=== PATIENT | male | born 2000 | race Caucasian/White ===

== ENCOUNTER 2021-01-23 18:49 | Emergency (ER) | payer MEDICAID ==
[2021-01-23] MEDS ORDERED: XYLOCAINE 1% HCL 20 ML MDV IJ ONE (19:21)
--- NOTE | 2021-01-23 19:35 | ERPHSYRPT ---
- History of Present Illness Time Seen by Provider: 01/23/21 19:05 Source: patient Exam Limitations: no limitations Patient Subjective Stated Complaint: Patient states he cut finger on a metal door. Middle finger on L hand dried blood. Cap refill unable to assess due to pr oximity of injury and pulses normal. Triage Nursing Assessment: L middle finger dried blood. Can move normally, pulses normal, cap refill unable to assess due to promixity of injury. States he is not in any pain. Physician History: Patient presents with a laceration to the left middle finger distal phalanx ulnar side total length approximately 2 cm he reports that he was lacerated by a metal door. 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 Timing/Duration: today Quality: painful Severity: moderate Location: hands (Serration is to the distal phalanx left middle finger ulnar aspect 2 cm in length) Allergies/Adverse Reactions: No Known Drug Allergies Allergy (Verified 01/23/21 19:05) Home Medications: No Home Meds [No Home Meds] 0 08/19/13 [History] Hx Tetanus, Diphtheria Vaccination/Date Given: Yes Hx Influenza Vaccination/Date Given: No Hx Pneumococcal Vaccination/Date Given: No Travel Risk - International Travel Have you traveled outside of the country in past 3 weeks: No - Coronavirus Screening Are you exhibiting any of the following symptoms?: No Close contact with a COVID-19 positive Pt in past 14-21 Days: No - Vaccine Status Have you recieved a Covid-19 vaccination: No - Review of Systems Constitutional: No Fever, No Chills Eyes: No Symptoms Ears, Nose, & Throat: No Symptoms Respiratory: No Cough, No Dyspnea Cardiac: No Chest Pain, No Edema, No Syncope Abdominal/Gastrointestinal: No Abdominal Pain, No Nausea, No Vomiting, No Diarrhea Genitourinary Symptoms: No Dysuria Musculoskeletal: No Back Pain, No Neck Pain Skin: Other (Serration left middle finger), No Rash Neurological: No Dizziness, No Focal Weakness, No Sensory Changes Psychological: No Symptoms Endocrine: No Symptoms All Other Systems: Reviewed and Negative - Past Medical History Pertinent Past Medical History: No - Past Surgical History Past Surgical History: No - Social History Smoking Status: Never smoker Exposure to second hand smoke: Yes Drug Use: none Patient Lives Alone: No - Nursing Vital Signs Nursing Vital Signs: Initial Vital Signs Temperature 98.3 F 01/23/21 18:56 Pulse Rate 78 01/23/21 18:56 Blood Pressure 146/58 01/23/21 18:56 O2 Sat by Pulse Oximetry 96 01/23/21 18:56 Pain Scale Pain Intensity 0 - Physical Exam General Appearance: mild distress Eye Exam: PERRL/EOMI, eyes nml inspection Ears, Nose, Throat Exam: normal ENT inspection Neck Exam: normal inspection, non-tender, supple Respiratory Exam: airway intact, No chest tenderness, No respiratory distress Extremity Exam: other (Examination of the extremities shows him to be normal range of motion no neurovascular tendon abnormality there is on the left middle finger ulnar side distal phalanx a 2 cm laceration noted.) Neurologic Exam: alert, oriented x 3, cooperative Skin Exam: laceration SpO2 Interpretation: normal SpO2: 96 O2 Delivery: Room Air Procedures - Laceration/Wound Repair Left Distal Finger Time of Procedure: 19:34 Wound Location: Left, hand (Left middle finger 2 cm laceration ulnar aspect of t he distal phalanx) Wound Length (cm): 2 Wound's Depth, Shape: superficial Wound Explored: no foreign body noted Irrigated: Yes Hibiclens Prep: Yes Anesthesia: 1% Lidocaine Volume Anesthetic (ccs): 2 Wound Repaired With: sutures Suture Size/Type: 4-0 Number of Sutures: 3 Layer Closure?: No Sterile Dressing Applied?: Yes Splint Applied?: No Sling Applied?: No - Course Nursing assessment & vital signs reviewed: Yes Ordered Tests: Medication Summary Discontinued Medications Generic Name Dose Route Start Last Admin Trade Name Jayson PRN Reason Stop Dose Admin Lidocaine HCl 5 ml 01/23/21 19:21 01/23/21 19:21 Xylocaine 1% Hcl 20 Ml Mdv IJ 01/23/21 19:22 5 ml STAT ONE Administration - Progress Progress: improved - Departure Departure Disposition: Home Clinical Impression: Laceration of left middle finger Condition: Stable Critical Care Time: No Referrals: HE ADHIKARI [Primary Care Provider] - Instructions: Laceration Repair With Stitches (DC)
[2021-01-23] MEDS ORDERED: Adacel Vial IM ONE ×2 (19:39→19:41)
[2021-01-23 19:52] VITALS: BP 135/75; PULSE 80; O2SAT 98
== END 2021-01-23 19:51 | disposition home or self-care (01) ==
LOC: ED 18:49
DX: S61.213A Laceration without foreign body of left middle finger without damage to nail, initial encounter (principal); W26.9XXA Contact with unspecified sharp object(s), initial encounter; Y93.9 Activity, unspecified; Y92.89 Other specified places as the place of occurrence of the external cause
CPT/HCPCS: 12002; 90471; 90715; 96372; 99284